=== PATIENT | male | born 1995 | race Caucasian/White ===

== ENCOUNTER 2021-11-05 11:02 | Emergency (ER) | payer OTHER ==
[2021-11-05] MEDS ORDERED: NA CHLORIDE 0.9% 1,000 ML ONE ×2 (13:28→14:18)
[2021-11-05 13:56] LABS: Urine Blood Negative (Negative); Urine Glucose Negative (Negative); Urine Protein Negative (Negative); Urine Specific Gravity 1.025 (1.005-1.030); Urine pH 7.5 (5.0-7.0)
[2021-11-05 14:20] LABS: Absolute Lymphocytes (CBC) 2.4 K/uL (0.7-4.9); Hematocrit 51.9 % (39.6-49.0); MPV 8.2 fL (7.6-11.3); RBC Red Blood Cell Count 5.61 M/uL (4.33-5.43)
[2021-11-05 14:43] LABS: Urine Bacteria <20 /HPF (NONE SEEN); Urine RBC NONE SEEN /HPF (NONE SEEN)
[2021-11-05 16:00] LABS: ALT/SGPT 25 U/L (12-78); AST/SGOT 14 U/L (15-37); Albumin 4.4 g/dL (3.4-5.0); Alkaline Phosphatase 73 U/L (45-117); BUN Blood Urea Nitrogen 10 mg/dL (7-18); Bicarbonate 27 mmol/L (21-32); Bilirubin Direct 0.2 mg/dL (0-0.2); Bilirubin Total 0.9 mg/dL (0.2-1.0); Glucose Level 95 mg/dL (74-106); Lipase 142 U/L (73-393); Potassium 3.8 mmol/L (3.5-5.1); Protein, Total 7.6 g/dL (6.4-8.2); Sodium Level 139 mmol/L (136-145)
--- NOTE | 2021-11-05 17:19 | RAD REPORT ---
EXAM DESCRIPTION: CT - Abdomen Pelvis W Contrast - 11/05/2021 4:42 pm CLINICAL HISTORY: Abdominal pain. COMPARISON: None. TECHNIQUE: Computed axial tomography of the abdomen and pelvis was obtained. 100 cc Isovue-300 is ad ministered intravenously. Oral contrast was given. All CT scans are performed using dose optimization technique as appropriate and may include automated exposure control or mA/KV adjustment according to patient size. FINDINGS: The liver, spleen, pancreas, adrenals and kidneys appear unremarkable. There is no evidence of diverticulitis The appendix is not seen. There are no secondary signs of appendicitis. No stranding adjacent to the cecum. No ascites. IMPRESSION: No acute abnormality displayed
--- NOTE | 2021-11-05 17:48 | ER ---
Nurse's Notes [facility] Name: Lucio Loving Age: 26 yrs Sex: Male : 1995 Arrival Date: 11/05/2021 Time: 11:06 Bed 16 Private MD: Diagnosis: Lower abdominal pain, unspecified Presentation: 11/05 11:35 Chief complaint: Patient states: Pt amb to triage w c/o R side abd pain that started ic1 this AM around 0400. Denies n/v, diarrhea/constipation. Coronavirus screen: Vaccine status: Patient reports being unvaccinated. Ebola Screen: No symptoms or risks identified at this time. Initial Sepsis Screen: Does the patient meet any 2 criteria? No. Patient's initial sepsis screen is negative. Does the patient have a suspected source of infection? No. Patient's initial sepsis screen is negative. Risk Assessment: Do you want to hurt yourself or someone else? Patient reports no desire to harm self or others. Onset of symptoms was November 05, 2021. 11:35 Method Of Arrival: Ambulatory ic1 11:35 Acuity: CEDRIC 3 ic1 Triage Assessment: 11:36 General: Appears in no apparent distress. comfortable, Behavior is calm, cooperative. ic1 Pain: Complains of pain in right upper quadrant and right lower quadrant. GI: Reports lower abdominal pain, upper abdominal pain, Patient currently denies constipation, diarrhea, nausea, vomiting. Historical: - Allergies: 11:36 No Known Allergies; ic1 - Immunization history:: Adult Immunizations up to date. - Social history:: Smoking status: Patient denies any tobacco usage or history of. Screenin:10 Abuse screen: Denies threats or abuse. Denies injuries from another. Nutritional villa screening: No deficits noted. Tuberculosis screening: No symptoms or risk factors identified. Fall Risk IV access (20 points). Assessment: 14:00 General: Appears well groomed, well developed, Behavior is calm, cooperative, ww appropriate for age. Pain: Complains of pain in right lower quadrant. Neuro: Level of Consciousness is awake, alert, obeys commands, Oriented to person, place, time, situation, Gait is steady, Speech is normal. Cardiovascular: Denies chest pain, shortness of breath, Capillary refill < 3 seconds Patient's skin is warm and dry. Respiratory: Airway is patent Respiratory effort is even, unlabored, Respiratory pattern is regular, symmetrical. GI: Abdomen is non-distended, Abd is soft Abdomen is tender to palpation in right lower quadrant. GI: Reports lower abdominal pain, diarrhea. : No deficits noted. No signs and/or symptoms were reported regarding the genitourinary system. EENT: No deficits noted. No signs and/or symptoms were reported regarding the EENT system. Derm: No deficits noted. No signs and/or symptoms reported regarding the dermatologic system. Skin is intact, is healthy with good turgor, Skin is pink, warm \T\ dry. Musculoskeletal: No deficits noted. No signs and/or symptoms reported regarding the musculoskeletal system. Circulation, motion, and sensation intact. 15:11 GI: Bowel sounds present X 4 quads. Abdomen is tender to palpation in right lower villa quadrant. Vital Signs: 11:34 BP 123 / 88; Pulse 75; Resp 18; Temp 98.2; Pulse Ox 99% on R/A; ic1 14:19 BP 130 / 91; Pulse 92; Resp 18; Pulse Ox 99% on R/A; villa 15:10 BP 130 / 91; Pulse 102; Resp 18; Pulse Ox 100% on R/A; villa 17:58 BP 132 / 89; Pulse 75; Resp 18; Pulse Ox 99% on R/A; ic1 ED Course: 11:06 Patient arrived in ED. am2 11:36 Triage completed. ic1 11:37 Arm band placed on right wrist. ic1 13:06 Bella Noriega RN is Primary Nurse. ww 13:10 Colton Junior PA is PHCP. cp 13:10 Yash Agrawal MD is Attending Physician. cp 15:10 No provider procedures requiring assistance completed. Inserted saline lock: 22 gauge villa in left antecubital area, using aseptic technique. 15:11 Patient has correct armband on for positive identification. Bed in low position. villa 16:42 CT Abd/Pelvis - PO and IV Contrast In Process Unspecified. EDMS 17:56 IV discontinued, intact, bleeding controlled, No redness/swelling at site. Pressure ic1 dressing applied. Administered Medications: 14:16 Drug: NS 0.9% 1000 ml Route: IV; Rate: 1 bolus; Site: left antecubital; ww 15:48 Follow up: IV Status: Completed infusion villa Outcome: 17:47 Discharge ordered by . cp 17:55 Discharged to home ambulatory, with significant other. ic1 17:55 Condition: good 17:55 Discharge instructions given to patient, Instructed on discharge instructions, follow up and referral plans. Demonstrated understanding of instructions, follow-up care, medications, Prescriptions given X 1. 17:58 Patient left the ED. ic1 Signatures: Dispatcher [employer] EDMS Colton Junior PA PA cp Moreno, Amanda [facility] Bella Noriega, RN RN Sara Calles RN RN ha Creggett, Iesha, RN RN ic1
--- NOTE | 2021-11-05 17:48 | EDPHYS ---
Physician Documentation [facility] Name: Lucio Loving Age: 26 yrs Sex: Male : 1995 Arrival Date: 11/05/2021 Time: 11:06 Bed 16 Private MD: ED Physician Yash Agrawal HPI: 11/05 13:15 This 26 yrs old Male presents to ER via Ambulatory with complaints of Abdominal Pain - cp RLQ. 13:15 The patient presents with abdominal pain right side abdomen pain. cp 13:15 Onset: The symptoms/episode began/occurred this morning, at 04:00. cp 13:15 The symptoms do not radiate. Associated signs and symptoms: Pertinent negatives: cp anorexia, chest pain, constipation, diarrhea, dysuria, fever, hematuria, testicular pain. 13:15 The symptoms are described as achy. Severity of pain: in the emergency department the cp pain is unchanged despite home interventions. Historical: - Allergies: 11:36 No Known Allergies; ic1 - Immunization history:: Adult Immunizations up to date. - Social history:: Smoking status: Patient denies any tobacco usage or history of. ROS: 13:20 Constitutional: Negative for body aches, chills, fever, poor PO intake. cp 13:20 Eyes: Negative for injury, pain, redness, and discharge. cp 13:20 ENT: Negative for drainage from ear(s), ear pain, sore throat, difficulty swallowing, difficulty handling secretions. 13:20 Cardiovascular: Negative for chest pain, edema, palpitations. 13:20 Respiratory: Negative for cough, shortness of breath, wheezing. 13:20 Abdomen/GI: Positive for abdominal pain, Negative for nausea, vomiting, and diarrhea, constipation, anorexia. 13:20 Back: Negative for radiated pain. 13:20 : Negative for urinary symptoms, testicular pain 13:20 Neuro: Negative for altered mental status, headache, weakness. 13:20 All other systems are negative. Exam: 13:25 Constitutional: The patient appears in no acute distress, alert, awake, non-toxic, well cp developed, well nourished. 13:25 Head/Face: Normocephalic, atraumatic. cp 13:25 Eyes: Periorbital structures: appear normal, Conjunctiva: normal, no exudate, no injection, Sclera: no appreciated abnormality, Lids and lashes: appear normal, bilaterally. 13:25 ENT: External ear(s): are unremarkable, Nose: is normal, Mouth: Lips: moist, Oral mucosa: moist, Posterior pharynx: Airway: no evidence of obstruction, patent. 13:25 Chest/axilla: Inspection: normal. 13:25 Cardiovascular: Rate: normal, Rhythm: regular. 13:25 Respiratory: the patient does not display signs of respiratory distress, Respirations: normal, no use of accessory muscles, no retractions, labored breathing, is not present, Breath sounds: are clear throughout, no decreased breath sounds, no stridor, no wheezing. 13:25 Abdomen/GI: Inspection: abdomen appears normal, Bowel sounds: active, all quadrants, Palpation: soft, in all quadrants, mild abdominal tenderness, in the mid right abdomen, rebound tenderness, is not appreciated, involuntary guarding, is not appreciated. 13:25 Back: pain, is absent, ROM is normal. 13:25 Skin: no rash present. Vital Signs: 11:34 BP 123 / 88; Pulse 75; Resp 18; Temp 98.2; Pulse Ox 99% on R/A; ic1 14:19 BP 130 / 91; Pulse 92; Resp 18; Pulse Ox 99% on R/A; villa 15:10 BP 130 / 91; Pulse 102; Resp 18; Pulse Ox 100% on R/A; villa 17:58 BP 132 / 89; Pulse 75; Resp 18; Pulse Ox 99% on R/A; ic1 MDM: 13:14 Patient medically screened. cp 16:00 Differential diagnosis: appendicitis, non-specific abd pain, Pyelonephritis, Testicular cp Torsion, Ureterolithiasis, urinary tract infection. 17:45 Data reviewed: vital signs, nurses notes, lab test result(s), radiologic studies, CT cp scan. 17:46 Counseling: I had a detailed discussion with the patient and/or guardian regarding: the cp historical points, exam findings, and any diagnostic results supporting the discharge/admit diagnosis, lab results, radiology results, to return to the emergency department if symptoms worsen or persist or if there are any questions or concerns that arise at home. 17:46 Response to treatment: the patient's symptoms have mildly improved after treatment, and cp as a result, I will discharge patient. Special discussion: Based on the patient's Hx, exam, and Dx evaluation, there is no indication for emergent surgery or inpatient Tx. It is understood by the patient/guardian that if the Sx's persist or worsen they need to return immediately for re-evaluation. 11/05 13:03 Order name: Basic Metabolic Panel; Complete Time: 17:27 11/05 13:03 Order name: CBC with Diff; Complete Time: 15:42 11/05 15:42 Interpretation: Normal except: RBC 5.61; HCT 51.9. 11/05 13:03 Order name: Hepatic Function; Complete Time: 17:27 11/05 13:03 Order name: Lipase; Complete Time: 17:27 11/05 13:15 Order name: Urine Microscopic Only; Complete Time: 15:42 11/05 13:56 Order name: Urine Dipstick-Ancillary; Complete Time: 15:42 EDMS 11/05 13:03 Order name: IV Saline Lock; Complete Time: 13:22 11/05 13:03 Order name: Labs collected and sent; Complete Time: 13:22 11/05 13:15 Order name: Urine Dipstick-Ancillary (obtain specimen); Complete Time: 14:24 11/05 13:15 Order name: CT Abd/Pelvis - PO and IV Contrast; Complete Time: 17:27 11/05 17:28 Interpretation: Report reviewed. 11/05 14:25 Order name: Labs - recollect needed: recollect green top; Complete Time: 14:52 eb 11/05 14:44 Order name: Labs - recollect needed: recollect on the recollect/ inside lab called; eb Complete Time: 14:52 Administered Medications: 14:16 Drug: NS 0.9% 1000 ml Route: IV; Rate: 1 bolus; Site: left antecubital; ww 15:48 Follow up: IV Status: Completed infusion villa Disposition Summary: 11/05/21 17:47 Discharge Ordered Location: Home cp Problem: new cp Symptoms: have improved cp Condition: Stable cp Diagnosis - Lower abdominal pain, unspecified cp Followup: cp - With: Emergency Department - When: 1 - 2 days - Reason: Worsening of condition Discharge Instructions: - Discharge Summary Sheet cp - Abdominal Pain, Adult cp Forms: - Medication Reconciliation Form cp - Thank You Letter cp - Antibiotic Education cp - Prescription Opioid Use cp Prescriptions: - Ibuprofen 800 mg Oral Tablet - take 1 tablet by ORAL route every 8 hours As needed take with food; 30 tablet; cp Refills: 0, Product Selection Permitted Addendum: 11/06/2021 19:09 Co-signature as Attending Physician, Yash Agrawal MD I agree with the assessment and k dr plan of care. Signatures: Dispatcher [employer] EDTN Yash Agrawal MD MD kdr Page, Corey, PA PA cp Botello, Elizabeth eb Wood, Whitney, RN RN Sara Maciel RN RN ha Creggett, Iesha, RN RN ic1 Corrections: (The following items were deleted from the chart) 16:48 11/05 13:15 The patient presents with abdominal pain right lower quadrant, cp cp
[2021-11-05 18:14] VITALS: TEMP 98.2
[2021-11-05 18:18] VITALS: BP 132/89; O2SAT 99
== END 2021-11-05 17:58 | disposition home or self-care (01) ==
LOC: ER 11:02
DX: R10.31 Right lower quadrant pain (principal)
CPT/HCPCS: 96361; 85025; 80048; 36415; 80076; 83690; 74177; 96360; 99284; Q9967; J7030 ×2; 81003; 81015

== ENCOUNTER 2024-07-11 17:08 | Emergency (ER) | payer OTHER ==
[2024-07-11 18:01] LABS: Absolute Eosinophils 0.1 K/uL (0-0.5); Absolute Lymphocytes (CBC) 1.9 K/uL (0.7-4.9); Absolute Monocytes 0.6 K/uL (0.1-1.3); Absolute Neutrophil 5.4 K/uL (1.8-8.0); Basophils % 0.5 % (0-1.3); Eosinophils % 1.7 % (0-4.4); Hematocrit 47.4 % (39.6-49.0); Hemoglobin 16.3 g/dL (13.6-17.9); Lymphocytes % 23.1 % (15.3-44.8); MCH 31.4 pg (27.0-35.0); MCHC 34.4 g/dL (32.0-36.0); MCV 91.4 fL (80-100); MPV 7.7 fL (7.6-11.3); Neutrophils % 67.7 % (41.7-73.7); Platelets 251 thou/uL (152-406); RBC Red Blood Cell Count 5.18 M/uL (4.33-5.43); Red Cell Distribution Width 12.4 % (12.1-15.2)
[2024-07-11 18:03] LABS: Specific Gravity 1.012 (1.005-1.030); Urine Bilirubin NEGATIVE (Negative); Urine Blood Negative (Negative); Urine Clarity Clear (Clear); Urine Color Colorless (Yellow); Urine Glucose NEGATIVE (Negative); Urine Ketones NEGATIVE (Negative); Urine Microscopic Reflex YN NO UMIC; Urine Nitrite NEGATIVE (Negative); Urine Protein NEGATIVE (Negative); Urine Urobilinogen Normal (Normal); Urine pH 6.5 (5.0-7.0)
[2024-07-11 18:30] LABS: Albumin 3.9 g/dL (3.4-5.0); Albumin/Globulin Ratio 1.2 (1.1-1.8); Anion Gap 6.5 mEq/L (5.0-15.0); Bilirubin Total 0.6 mg/dL (0.2-1.0); Globulin 3.3 g/dL (2.3-3.5); Potassium 3.5 mEq/L (3.5-5.1); Protein, Total 7.2 g/dL (6.4-8.2)
--- NOTE | 2024-07-11 19:55 | RAD REPORT ---
EXAMINATION: CT ABDOMEN AND PELVIS WITH CONTRAST CLINICAL INDICATION: Male, 29 years old.ABD PAIN TECHNIQUE: CT abdomen and pelvis was performed, after the administration of IV contrast, [facility]. Axial, sagittal and coronal reconstructions were obtained. One or more of the following dose reduction techniques were used: Automated exposure control, adjustment of the mA and/o r kV according to patient size, and/or iterative reconstruction. Unless otherwise specified, incidental findings do not require dedicated imaging follow-up. [id number]. COMPARISON: 11/05/2021 FINDINGS: LOWER CHEST: The visualized lung bases are clear. LIVER: Normal in size and contour. No focal lesion. GALLBLADDER/BILE DUCT: No biliary ductal dilatation.? PANCREAS: No mass, ductal dilation, or pancho-pancreatic fluid. SPLEEN: Normal size. No focal lesion. ADRENALS: Normal; no mass. KIDNEYS AND URETERS: Normal size and contour. No hydronephrosis. URINARY BLADDER: Normal contour. GASTROINTESTINAL TRACT: Stomach is non-dilated. Small bowel has normal course and caliber. No colonic wall thickening or pericolonic inflammatory changes. PERITONEUM: Encapsulated fat with stranding in the left lower quadrant anterior to the proximal sigmo id. LYMPH NODES: No lymphadenopathy. ABDOMINAL AORTA AND OTHER VESSELS: Normal caliber aorta and IVC. REPRODUCTIVE ORGANS: No pathologic process MUSCULOSKELETAL: No acute or suspicious osseous abnormality. ADDITIONAL FINDINGS: None. IMPRESSION: Acute epiploic appendicitis in the left lower quadrant.
--- NOTE | 2024-07-11 20:22 | ER ---
Nurse's Notes [facility] Name: Lucio Loving Age: 29 yrs Sex: Male : 1995 Arrival Date: 07/11/2024 Time: 17:08 Bed 14 Private MD: Diagnosis: Epiploic appendagitis Presentation: 07/11 17:17 Chief complaint: Patient states: LLQ pain started 4 days ago but continues to worsen. tm6 No n/v/d. Coronavirus screen: Vaccine status: Patient reports being unvaccinated. Ebola Screen: Patient negative for fever greater than or equal to 101.5 degrees Fahrenheit, and additional compatible Ebola Virus Disease symptoms Patient denies exposure to infectious person. Patient denies travel to an Ebola-affected area in the 21 days before illness onset. No symptoms or risks identified at this time. Initial Sepsis Screen: Does the patient meet any 2 criteria? No. Patient's initial sepsis screen is negative. Does the patient have a suspected source of infection? No. Patient's initial sepsis screen is negative. Risk Assessment: Do you want to hurt yourself or someone else? Patient reports no desire to harm self or others. Onset of symptoms was July 07, 2024. 17:17 Method Of Arrival: Ambulatory tm6 17:17 Acuity: CEDRIC 3 tm6 Triage Assessment: 17:18 General: Appears in no apparent distress. Behavior is calm, cooperative. Pain: tm6 Complains of pain in left lower quadrant Pain currently is 6 out of 10 on a pain scale. Pain began 4 days ago. EENT: No signs and/or symptoms were reported regarding the EENT system. Neuro: Level of Consciousness is awake, alert, obeys commands, Oriented to person, place, time, situation. Cardiovascular: Patient's skin is warm and dry. Respiratory: Airway is patent Respiratory effort is even, unlabored, Respiratory pattern is regular, symmetrical. GI: Abdomen is flat, non-distended, Reports lower abdominal pain. : No signs and/or symptoms were reported regarding the genitourinary system. Derm: No signs and/or symptoms reported regarding the dermatologic system. Musculoskeletal: No signs and/or symptoms reported regarding the musculoskeletal system. Historical: - Allergies: 17:18 No Known Allergies; tm6 - PMHx: 17:18 bicuspid aortic valve; tm6 - PSHx: 17:18 None; tm6 - Immunization history:: Client reports having NOT received the Covid vaccine. - Infectious Disease History:: Denies. - Social history:: Smoking status: Patient denies any tobacco usage or history of. Patient/guardian denies using alcohol. Screenin:30 [facility] ED Fall Risk Assessment (Adult) History of falling in the last 3 months, me1 including since admission No falls in past 3 months (0 pts) Confusion or Disorientation No (0 pts) Intoxicated or Sedated No (0 pts) Impaired Gait No (0 pts) Mobility Assist Device Used No (0 pt) Altered Elimination No (0 pt) Score/Fall Risk Level 0 - 2 = Low Risk Maintained a safe environment, Provided non-skid footwear, Hourly rounding (assess needs \T\ fall precautionary measures) done. Abuse screen: Denies threats or abuse. Nutritional screening: No deficits noted. Tuberculosis screening: No symptoms or risk factors identified. Assessment: 17:30 General: Appears uncomfortable, well groomed, well developed, well nourished, Behavior me1 is calm, cooperative, appropriate for age, Reports LLQ pain started 4 days ago but continues to worsen. No n/v/d. Pain: Complains of pain in left lower quadrant Pain does not radiate. Pain currently is 7 out of 10 on a pain scale. Quality of pain is described as sharp, Pain began 4 days ago Is continuous. Neuro: Level of Consciousness is awake, alert, obeys commands, Oriented to person, place, time, situation, Appropriate for age. Cardiovascular: Patient's skin is warm and dry. Respiratory: Airway is patent Respiratory effort is even, unlabored, Respiratory pattern is regular, symmetrical. GI: Bowel sounds present X 4 quads. Abd is soft X 4 quads Reports lower abdominal pain, Patient currently denies constipation, diarrhea, nausea, vomiting. : No signs and/or symptoms were reported regarding the genitourinary system. EENT: No signs and/or symptoms were reported regarding the EENT system. Derm: Skin is intact, is healthy with good turgor, Skin is pink, warm \T\ dry. Musculoskeletal: No signs and/or symptoms reported regarding the musculoskeletal system. 20:57 Reassessment: Patient appears in no apparent distress at this time. Patient states kl feeling better. Patient states symptoms have improved. Vital Signs: 17:18 BP 141 / 80; Pulse 75; Resp 19; Temp 97.3(TE); Pulse Ox 100% on R/A; MAP 97 mmHg; tm6 Weight 72.57 kg; Height 5 ft. 8 in. ; Pain 6/10; 20:58 BP 116 / 84; Pulse 62; Resp 16; Temp 97(TE); Pulse Ox 100% ; kl 17:18 Body Mass Index 24.33 (72.57 kg, 172.72 cm) tm6 17:18 Pain Scale: Adult tm6 ED Course: 17:11 Patient arrived in ED. mg5 17:11 Dea Castellano PA-C is PHCP. sb4 17:11 Joao Hannon MD is Attending Physician. sb4 17:18 Triage completed. tm6 17:18 Arm band placed on right wrist. tm6 17:30 Patient has correct armband on for positive identification. Bed in low position. Call me1 light in reach. Side rails up X 1. Provided Education on: POC. Verbalized understanding. . Client placed on continuous cardiac and pulse oximetry monitoring. NIBP monitoring applied. Pulse ox on. NIBP on. 17:30 No provider procedures requiring assistance completed. me1 17:37 Lisha Campbell, RN is Primary Nurse. me1 17:49 Initial lab(s) drawn, by me, sent to lab. Inserted saline lock: 22 gauge in right me1 forearm, using aseptic technique. 17:49 CBC with Diff Sent. me1 17:49 CMP Sent. me1 17:49 Lipase Sent. me1 17:53 Urinalysis w/ reflexes Sent. me1 17:53 Urine collected: clean catch specimen, clear. me1 19:29 CT Abd/Pelvis - IV Contrast Only In Process Unspecified. EDMS 20:57 IV discontinued, intact, bleeding controlled, No redness/swelling at site. Pressure kl dressing applied. Administered Medications: 20:56 Drug: Ondansetron Oral Disintegrating Tablet Oral Disintegrating Tablet 4 mg PO once kl Route: PO; 20:57 Drug: Amoxicillin-Clavulanate PO 875 mg PO once Route: PO; kl 20:57 Drug: metroNIDAZOLE PO 500 mg PO once Route: PO; kl Medication: 17:30 VIS not applicable for this client. me1 Outcome: 20:21 Discharge ordered by MD. moreira 20:57 Discharged to home ambulatory, 20:57 Condition: improved 20:57 Discharge instructions given to patient, Instructed on discharge instructions, follow up and referral plans. medication usage, Demonstrated understanding of instructions, follow-up care, medications, Prescriptions given X 3, 20:57 Patient left the ED. Signatures: Dispatcher [employer] Sana Tony RN RN Dea Stern, PA-C PALisbethC sb4 Lisha Campbell RN RN me1 Martina Watters mg5 Lucille Zhang RN RN tm6 Corrections: (The following items were deleted from the chart) 18:48 17:17 Chief complaint: Patient states: LLQ pain started 4 days ago but continues to me1 worsen. No n/v/d tm6
--- NOTE | 2024-07-11 20:22 | EDPHYS ---
Physician Documentation [facility] Name: Lucio Loving Age: 29 yrs Sex: Male : 1995 Arrival Date: 07/11/2024 Time: 17:08 Bed 14 Private MD: ED Physician Joao Hannon HPI: 07/11 17:26 This 29 yrs old Male presents to ER via Ambulatory with complaints of Abdominal Pain. sb4 17:26 The patient presents with abdominal pain in the left lower quadrant. Onset: The sb4 symptoms/episode began/occurred 3 day(s) ago. The symptoms do not radiate. Associated signs and symptoms: none. The symptoms are described as stabbing. Modifying factors: The symptoms are alleviated by remaining still, the symptoms are aggravated by coughing, movement, touching the area. The patient has not experienced similar symptoms in the past. The patient has not recently seen a physician. Historical: - Allergies: 17:18 No Known Allergies; tm6 - PMHx: 17:18 bicuspid aortic valve; tm6 - PSHx: 17:18 None; tm6 - Immunization history:: Client reports having NOT received the Covid vaccine. - Infectious Disease History:: Denies. - Social history:: Smoking status: Patient denies any tobacco usage or history of. Patient/guardian denies using alcohol. ROS: 17:26 Constitutional: Negative for fever, chills, and weight loss, sb4 17:26 Abdomen/GI: Positive for abdominal pain, 17:26 All other systems are negative, Exam: 17:26 Constitutional: This is a well developed, well nourished patient who is awake, alert, sb4 and in no acute distress. Head/Face: Normocephalic, atraumatic. Eyes: Extra-ocular motions intact. Periorbital areas with no swelling, redness, or edema. ENT: Mucous membranes moist. Cardiovascular: Regular rate and rhythm with a normal S1 and S2. Respiratory: Lungs have equal breath sounds bilaterally, clear to auscultation and percussion. No rales, rhonchi or wheezes noted. No increased work of breathing, no retractions or nasal flaring. Skin: Warm, dry with normal turgor. Normal color with no rashes, no lesions, and no evidence of cellulitis. 17:26 Abdomen/GI: Inspection: abdomen appears normal, Bowel sounds: normal, Palpation: soft, mild abdominal tenderness, in the left lower quadrant, voluntary guarding, is not appreciated, involuntary guarding, is not appreciated, Vital Signs: 17:18 BP 141 / 80; Pulse 75; Resp 19; Temp 97.3(TE); Pulse Ox 100% on R/A; MAP 97 mmHg; tm6 Weight 72.57 kg; Height 5 ft. 8 in. ; Pain 6/10; 20:58 BP 116 / 84; Pulse 62; Resp 16; Temp 97(TE); Pulse Ox 100% ; kl 17:18 Body Mass Index 24.33 (72.57 kg, 172.72 cm) tm6 17:18 Pain Scale: Adult tm6 MDM: 17:15 Patient medically screened. sb4 17:30 ED course: pain worse with movement and exertion, I suspect musculoskeletal injury as sb4 he reports physical exertion last weekend. will check blood work and CT to rule out any intraabdominal pathology. 21:15 Data reviewed: vital signs, nurses notes, lab test result(s), radiologic studies, I sb4 have discussed the patient's presentation/case with the attending Emergency Department Physician; and as a result, I will discharge patient. Counseling: I had a detailed discussion with the patient and/or guardian regarding the historical points, exam findings, and any diagnostic results supporting the discharge/admit diagnosis, lab results, radiology results, to return to the emergency department if symptoms worsen or persist or if there are any questions or concerns that arise at home. 07/11 17:26 Order name: CBC with Diff; Complete Time: 18:10 sb4 07/11 17:26 Order name: CMP; Complete Time: 18:42 sb4 07/11 17:26 Order name: Lipase; Complete Time: 18:42 sb4 07/11 17:26 Order name: Urinalysis w/ reflexes; Complete Time: 18:10 sb4 07/11 17:26 Order name: CT Abd/Pelvis - IV Contrast Only; Complete Time: 19:56 sb4 07/11 17:26 Order name: IV Saline Lock; Complete Time: 17:49 sb4 07/11 17:26 Order name: Labs collected and sent; Complete Time: 17:49 sb4 Administered Medications: 20:56 Drug: Ondansetron Oral Disintegrating Tablet Oral Disintegrating Tablet 4 mg PO once kl Route: PO; 20:57 Drug: Amoxicillin-Clavulanate PO 875 mg PO once Route: PO; 20:57 Drug: metroNIDAZOLE PO 500 mg PO once Route: PO; Disposition: 07/12 13:59 Co-signature as Attending Physician, Joao Hannon MD I reviewed the patient's care rn provided by the Advanced Practice Provider and agree with the diagnosis and treatment plan. Disposition Summary: 07/11/24 20:21 Discharge Ordered Notes: Location: Home sb4 Problem: an ongoing problem sb4 Symptoms: have improved sb4 Condition: Stable sb4 Diagnosis - Epiploic appendagitis sb4 Followup: sb4 - With: Private Physician - When: 1 week - Reason: Recheck today's complaints, Re-evaluation by your physician Discharge Instructions: - Discharge Summary Sheet sb4 Forms: - Antibiotic Education sb4 - Patient Portal Instructions sb4 - Leadership Thank You Letter sb4 Prescriptions: - Augmentin 875-125 mg Oral tablet - take 1 tablet ORAL route every 12 hours for 7 days; 14 tablet; Refills: 0, sb4 Product Selection Permitted - Flagyl 500 mg Oral Tablet - take 1 tablet ORAL route every 12 hours for 7 days; 14 tablet; Refills: 0, sb4 Product Selection Permitted - Ibuprofen 600 mg Oral Tablet - take 1 tablet ORAL route every 6 hours As needed take with food; 30 tablet; sb4 Refills: 0, Product Selection Permitted Signatures: Dispatcher [employer] EDSana Hutton RN RN kl Nieto, Roman, MD MD rn Brown, Sophia, PA-C PA-C sb4 Lucille Zhang RN RN tm6 Corrections: (The following items were deleted from the chart) 07/11 17:27 17:27 CBC+H.LAB.BRZ ordered. EDMS EDMS 17:27 17:27 COMPREHENSIVE METABOLIC PANEL+C.LAB.BRZ ordered. EDMS EDMS 17:27 17:27 LIPASE+C.LAB.BRZ ordered. EDMS EDMS 17:27 17:27 Urinalysis+U.LAB.BRZ ordered. EDMS EDMS 17:27 17:27 Abdomen Pelvis W Con+CT.RAD.BRZ ordered. EDMS EDMS
[2024-07-11] MEDS ORDERED: AMOX/K CLAV 875 MG TAB ONE (20:51)
[2024-07-11] MEDS ORDERED: ONDANSETRON 4 MG (ODT) TAB ONE (20:51)
[2024-07-11] MEDS ORDERED: metroNIDAZOLE 500 MG TABLET ONE (20:51)
[2024-07-12 13:05] VITALS: BP 141/80; TEMP 97.3; O2SAT 100
== END 2024-07-11 20:57 | disposition home or self-care (01) ==
LOC: ER 17:08
DX: K65.9 Peritonitis, unspecified (principal)
CPT/HCPCS: 85025; 36415; 81003; 83690; 80053; 74177; 99284; Q9967; Q0162